=== PATIENT | male | born 1970 | race Caucasian/White ===

== ENCOUNTER 2017-04-21 17:55 | Emergency (ER) | payer BC ==
--- NOTE | 2017-04-21 19:46 | ED Physician Documentation ---
PD HPI Fall - Stated complaint Stated Complaint: GLF, R ARM/HAND INJ, BACK LAC - Chief complaint Chief Complaint: General - History obtained from History obtained from: Patient - History of Present Illness Mechanism of injury: Tripped (he says he slipped and fell, tumbling over, with abrasions to back and left arm, but main concern to him was injury to right thumb, with swelling and laceration to base of it.) Fall distance: Standing position Where injury occurred: Home Timing - onset: Today Injury(ies) location: Back, Right Upper Extremity. No: Head, Neck Quality of pain: Pain, Throbbing, Aching Associated symptoms: No: LOC, AMS, Weakness, Paresthesias Contributing factors: Intoxicated. No: Anticoagulated Similar symptoms before: Has not had sx before Recently seen: Not recently seen Review of Systems GI: denies: Abdominal Pain, Vomiting : denies: Hematuria Skin: reports: Abrasion (s) Neurologic: denies: Focal weakness, Numbness, Altered mental status, Headache, Head injury Psychiatric: reports: Insomnia. denies: Depressed Endocrine: denies: Weight loss, Easy bruising / bleeding Immunocompromised: denies: Immunocompromised PD PAST MEDICAL HISTORY - Past Medical History Cardiovascular: None Respiratory: None Neuro: None Endocrine/Autoimmune: None GI: None Derm: None - Past Surgical History Past Surgical History: Yes - Present Medications Home Medications: Ambulatory Orders Medication Instructions Recorded Confirmed Hydrocodone/Acetaminophen [[place] 1 each PO Q6H PRN #15 tablet 04/21/17 5-325 Tablet] - Allergies Allergies/Adverse Reactions: Allergies Allergy/AdvReac Type Severity Reaction Status Date / Time No Known Drug Allergies Allergy Verified 12/09/15 09:57 - Social History Does the pt smoke?: Yes Smoking Status: Current every day smoker Does the pt drink ETOH?: Yes Does the pt have substance abuse?: No - Immunizations Immunizations are current?: Yes Immunizations: TDAP >10years/unknown - POLST Patient has POLST: No PD ED PE NORMAL - Vitals Vital signs reviewed: Yes - General General: Alert and oriented X 3, No acute distress, Well developed/nourished - HEENT HEENT: Atraumatic, Pharynx benign, Dentition benign - Neck Neck: Supple, no meningeal sign, No bony TTP, No adenopathy - Cardiac Cardiac: RRR, No murmur - Respiratory Respiratory: Clear bilaterally, Other (no chestwall tenderness) - Abdomen Abdomen: Soft, Non tender - Back Back: No spinal TTP (there is left upper thoracic back abrasion and also one right thoracolumbar area. ) - Derm Derm: Normal color, Warm and dry - Extremities Extremities: Other (right shoulder and upper arm with some abrasions, but good ROM of the arm. Right elbow is tenrness without effusion. Right thumb abse at MCP with tenderness and abrasion dorsally. No noted laxity on movement but limited due to pain. 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 ) Departure - Departure Disposition: 01 Home, Self Care Clinical Impression: Abrasions of multiple sites Fall from slip, trip, or stumble Qualifiers: Encounter type: initial encounter Qualified Code(s): W01.0XXA - Fall on same level from slipping, tripping and stumbling without subsequent striking against object, initial encounter Thumb sprain Qualifiers: Encounter type: initial encounter Sprain of finger site: metacarpophalangeal joint Laterality: right Qualified Code(s): S63.641A - Sprain of metacarpophalangeal joint of right thumb, initial encounter Condition: Stable Record reviewed to determine appropriate education?: Yes Instructions: ED Sprain Finger, ED Abrasion Prescriptions: Hydrocodone/Acetaminophen [[place] 5-325 Tablet] 1 each PO Q6H PRN #15 tablet PRN Reason: Pain Comments: Splint for thumb for several days until better. Cleanse abrasions once or twice daily and apply ointment such as bacitracin, neosporin. Tylenol or Ibuprofen as needed for pains. Add hydrocodone if needed. Recheck if not better over the next several days. Discharge Date/Time: 04/21/17 21:25
--- NOTE | 2017-04-21 19:59 | XRAY Preliminary Report ---
Exam: XR Hand 3 View RT IMPRESSION: Normal hand radiography. [facility] SITE ID: [id number]
--- NOTE | 2017-04-21 20:02 | XRAY Report ---
EXAM: RIGHT HAND RADIOGRAPHY EXAM DATE: 04/21/2017 07:13 PM. CLINICAL HISTORY: Fall, right thumb pain. COMPARISON: None. TECHNIQUE: 3 views. FINDINGS: Bones: Normal. No fractures or bone lesions. Joints: Normal. No subluxations. Soft Tissues: Normal. No soft tissue swelling. IMPRESSION: Normal hand radiography. [facility] Referring Provider Line: [phone] SITE ID: [id number]
[2017-04-21] MEDS ORDERED: HYDROcod/ACET 5/325 Prepack 6 PO ONE ×2 (20:52→20:57)
[2017-04-21] MEDS ORDERED: HYDROcod/ACETAM 5/325 MG TABLET PO STA (20:52)
[2017-04-21] MEDS ORDERED: IBUPROFEN 600 MG TABLET PO STA (20:52)
[2017-04-21] MEDS ORDERED: HYDROcod/ACETAM 5/325 MG TABLET ONE (20:57)
[2017-04-21] MEDS ORDERED: IBUPROFEN 600 MG TABLET PO ONE (20:58)
[2017-04-21 21:10] VITALS: BP 123/74
== END 2017-04-21 21:25 | disposition home or self-care (01) ==
LOC: ED 17:55
DX: S20.412A Abrasion of left back wall of thorax, initial encounter (principal); S50.311A Abrasion of right elbow, initial encounter; S40.211A Abrasion of right shoulder, initial encounter; S60.311A Abrasion of right thumb, initial encounter; S63.641A Sprain of metacarpophalangeal joint of right thumb, initial encounter; W01.0XXA Fall on same level from slipping, tripping and stumbling without subsequent striking against object, initial encounter; Y92.019 Unspecified place in single-family (private) house as the place of occurrence of the external cause; F17.200 Nicotine dependence, unspecified, uncomplicated
CPT/HCPCS: 29130; 73130; 99283; A9270